=== PATIENT | male | born 1985 | race Two or more races ===

== ENCOUNTER 2022-08-19 16:47 | Emergency (ER) | payer MEDICAID ==
[~2022-08-19] VITALS: Ht 172.7 cm; Wt 88.0 kg
[2022-08-19 16:56] VITALS: BP 123/75
--- NOTE | 2022-08-19 16:56 | NUR ---
RIGHT EYE PAIN/REDNESS X 5 DAYS
[2022-08-19] MEDS ORDERED: POLY10DR3 EACHEYE (18:03)
--- NOTE | 2022-08-19 18:09 | NUR ---
Patient discharged to home in stable condition. Written and verbal after care instructions given. Patient verbalizes understanding of instruction.
== END 2022-08-19 18:10 | disposition home or self-care (01) ==
LOC: ER 16:53
DX: H10.9 Unspecified conjunctivitis (principal); Z79.899 Other long term (current) drug therapy